=== PATIENT | female | born 1950 | race Caucasian/White ===

== ENCOUNTER 2017-08-22 22:18 | Emergency (ER) | payer OTHER ==
[~2017-08-22] VITALS: Ht 170.2 cm; Wt 77.5 kg
[2017-08-22] MEDS ORDERED: METF1000 PO (22:21)
[2017-08-22] MEDS ORDERED: LANTUS2P SQ (22:21)
[2017-08-22] MEDS ORDERED: VICT18IN SQ (22:24)
[2017-08-22] MEDS ORDERED: LISI10TA3 PO (22:24)
[2017-08-22] MEDS ORDERED: SYNT112T PO (22:24)
[2017-08-22] MEDS ORDERED: VITA1000 PO (22:24)
[2017-08-22 22:27] VITALS: BP 109/57; PULSE 63; RESP 14; TEMP 97.7; O2SAT 95
[2017-08-22] MEDS ORDERED: ASPI-516 CHEW (22:27)
[2017-08-22] MEDS ORDERED: ROSU10 PO (22:27)
[2017-08-22 22:56] LABS: AUTOMATED NEUTROPHIL # 3.5 TH/MM3 (1.8-7.7); BASOPHIL % 0.7 % (0.0-2.0); EOSINOPHIL # 0.3 TH/MM3 (0-0.4); EOSINOPHIL % 4.5 % (0.0-4.0); HEMATOCRIT 38.9 % (35.0-46.0); HEMOGLOBIN 12.7 GM/DL (11.6-15.3); LYMPH % 31.3 % (9.0-44.0); LYMPHOCYTE # 1.9 TH/MM3 (1.0-4.8); MEAN CORPUSCULAR HGB CONC 32.6 % (32.0-36.0); MEAN PLATELET VOLUME 8.2 FL (7.0-11.0); MONO % 6.2 % (0.0-8.0); MONOCYTE # 0.4 TH/MM3 (0-0.9); NEUT % 57.3 % (16.0-70.0); PLATELET COUNT 194 TH/MM3 (150-450); RED BLOOD COUNT 4.37 MIL/MM3 (4.00-5.30); RED CELL DISTRIBUTION WIDTH 13.1 % (11.6-17.2); WHITE BLOOD COUNT 6.1 TH/MM3 (4.0-11.0)
[2017-08-22 23:03] LABS: CHLORIDE 106 MEQ/L (98-107); SODIUM (NA) 138 MEQ/L (136-145)
[2017-08-22 23:06] LABS: ALBUMIN 3.6 GM/DL (3.4-5.0); BICARBONATE 22.5 MEQ/L (21.0-32.0); CALCIUM 8.8 MG/DL (8.5-10.1); GLUCOSE,RANDOM 260 MG/DL (74-106)
[2017-08-22 23:07] LABS: BLOOD UREA NITROGEN 17 MG/DL (7-18)
[2017-08-22 23:09] LABS: ALT (GPT) 25 U/L (10-53); AST (GOT) 16 U/L (15-37)
[2017-08-22 23:10] LABS: CREATININE 0.68 MG/DL (0.50-1.00); GLOMERULAR FILTRATION RATE 86 ML/MIN (>89)
[2017-08-22 23:11] LABS: TOTAL BILIRUBIN ADULT 0.3 MG/DL (0.2-1.0); TOTAL PROTEIN 6.7 GM/DL (6.4-8.2)
[2017-08-22 23:12] LABS: ALKALINE PHOSPHATASE 75 U/L (45-117)
[2017-08-22] MEDS ORDERED: SODIUM CHLOR 0.9% 1000 ML INJ 1,000 ML IV SCH (23:12)
[2017-08-22] MEDS ORDERED: ONDANSETRON HCL 4 MG/2 ML VIAL IVP ONE (23:15)
[2017-08-22] MEDS ORDERED: SODIUM CHLORIDE 0.9% FLUSH 10 ML FLUSH IV FLUSH PRN (23:15)
--- NOTE | 2017-08-22 23:15 | PD ---
HPI Chief Complaint: Alcohol/Drug Intoxication Time Seen by Provider: 23:08 Travel History International Travel<30 days: No Contact w/Intl Traveler<30days: No Traveled to known affect area: No History of Present Illness HPI The patient is a 67-year-old female that is not an alcoholic according to her daughter and happened to be out drinking vodka today. She started vomiting and felt weak and her daughter called the ambulance. She denies any abdominal pain and has not been vomiting blood. She has not had any fever. PFSH Past Medical History High Cholesterol: Yes Diabetes: Yes Patient Takes Glucophage: Yes Diminished Hearing: No Hypertension: Yes Tetanus Vaccination: Unknown Influenza Vaccination: No Menopausal: Yes Past Surgical History Appendectomy: Yes Hysterectomy: Yes Tonsillectomy: Yes Social History Alcohol Use: Yes (occ) Tobacco Use: Yes (3-4 qd) Substance Use: No Allergies-Medications (Allergen,Severity, Reaction): Coded Allergies: codeine (Verified Allergy, Unknown, 08/22/17) Reported Meds & Prescriptions Reported Meds & Active Scripts Active Reported Aspirin 81 Mg Chew 81 Mg CHEW DAILY Crestor (Rosuvastatin Calcium) 10 Mg Tab 10 Mg PO DAILY Lisinopril 10 Mg Tab 10 Mg PO DAILY Vitamin D-1000 (Cholecalciferol) 1,000 Unit Tab 1,000 Units PO WEEKLY Synthroid (Levothyroxine Sodium) 112 Mcg Tab 112 Mcg PO DAILY Victoza Inj (Liraglutide Inj) 18 Mg/3 Ml Pen 1.8 Mg SQ DAILY Lantus Inj (Insulin Glargine) 1,000 Unit/10 Ml Vial 34 Units SQ HS Metformin (Metformin HCl) 1,000 Mg Tab 1,000 Mg PO BIDPC Review of Systems Except as stated in HPI: all other systems reviewed are Neg Physical Exam Narrative GENERAL: The patient is alert, cooperative, oriented 3 in no apparent distress at this time. Her vital signs are normal. She appears slightly dehydrated. SKIN: Focused skin assessment warm/dry. HEAD: Atraumatic. Normocephalic. EYES: Pupils equal and round. No scleral icterus. No injection or drainage. ENT: No nasal bleeding or discharge. Mucous membranes pink and moist. NECK: Trachea midline. No JVD. CARDIOVASCULAR: Regular rate and rhythm. No murmur appreciated. RESPIRATORY: No accessory muscle use. Clear to auscultation. Breath sounds equal bilaterally. GASTROINTESTINAL: Abdomen soft, non-tender, nondistended. Hepatic and splenic margins not palpable. No guarding or rebound is present. MUSCULOSKELETAL: No obvious deformities. No clubbing. No cyanosis. No edema. NEUROLOGICAL: Awake and alert. No obvious cranial nerve deficits. Motor grossly within normal limits. Normal speech. PSYCHIATRIC: Appropriate mood and affect; insight and judgment normal. Data Data Last Documented VS Vital Signs Date Time Temp Pulse Resp B/P (MAP) Pulse Ox O2 Delivery O2 Flow Rate FiO2 08/22/17 23:25 55 15 105/56 (72) 99 Room Air 08/22/17 22:27 97.7 Orders Orders Complete Blood Count With Diff (08/22/17 22:38) Blood Glucose (08/22/17 22:38) Comprehensive Metabolic Panel (08/22/17 22:38) Iv Access Insert/Monitor (08/22/17 22:38) Alcohol (Ethanol) (08/22/17 22:38) Ecg Monitoring (08/22/17 23:12) Oximetry (08/22/17 23:12) Ondansetron Inj (Zofran Inj) (08/22/17 23:15) Sodium Chlor 0.9% 1000 Ml Inj (Ns 1000 M (08/22/17 23:12) Sodium Chloride 0.9% Flush (Ns Flush) (08/22/17 23:15) Lipase (08/22/17 22:50) Labs Laboratory Tests Test 08/22/17 22:50 White Blood Count 6.1 TH/MM3 Red Blood Count 4.37 MIL/MM3 Hemoglobin 12.7 GM/DL Hematocrit 38.9 % Mean Corpuscular Volume 89.0 FL Mean Corpuscular Hemoglobin 29.0 PG Mean Corpuscular Hemoglobin Concent 32.6 % Red Cell Distribution Width 13.1 % Platelet Count 194 TH/MM3 Mean Platelet Volume 8.2 FL Neutrophils (%) (Auto) 57.3 % Lymphocytes (%) (Auto) 31.3 % Monocytes (%) (Auto) 6.2 % Eosinophils (%) (Auto) 4.5 % Basophils (%) (Auto) 0.7 % Neutrophils # (Auto) 3.5 TH/MM3 Lymphocytes # (Auto) 1.9 TH/MM3 Monocytes # (Auto) 0.4 TH/MM3 Eosinophils # (Auto) 0.3 TH/MM3 Basophils # (Auto) 0.0 TH/MM3 CBC Comment DIFF FINAL Differential Comment Blood Urea Nitrogen 17 MG/DL Creatinine 0.68 MG/DL Random Glucose 260 MG/DL Total Protein 6.7 GM/DL Albumin 3.6 GM/DL Calcium Level 8.8 MG/DL Alkaline Phosphatase 75 U/L Aspartate Amino Transf (AST/SGOT) 16 U/L Alanine Aminotransferase (ALT/SGPT) 25 U/L Total Bilirubin 0.3 MG/DL Sodium Level 138 MEQ/L Potassium Level 3.6 MEQ/L Chloride Level 106 MEQ/L Carbon Dioxide Level 22.5 MEQ/L Anion Gap 10 MEQ/L Estimat Glomerular Filtration Rate 86 ML/MIN Lipase 287 U/L Ethyl Alcohol Level 185 MG/DL [facility] Medical Decision Making Medical Screen Exam Complete: Yes Emergency Medical Condition: Yes Medical Record Reviewed: Yes Interpretation(s) The CBC is normal. The complete metabolic profile shows a GFR of 86, glucose 260 but is otherwise unremarkable. The alcohol level is 185. The lipase is 287 , this is normal. Differential Diagnosis Gastritis, alcohol intoxication, viral gastroenteritis, electrolyte disorder, dehydration Narrative Course It is now 0020 in the morning. The patient feels much better and wants to go home. She has no nausea and no abdominal pain. Impression: Mild alcohol gastritis. The patient is not used to drinking alcohol. She should not drink so much alcohol in the future at one sitting. She has not a binge drinker according to her daughter. Diagnosis Primary Impression: Alcoholic gastritis Additional Impression: Alcohol intoxication Additional Instructions: As we discussed, reduce your amount of alcohol at one sitting. If you get abdominal pain you can use some [id number] Prilosec and liquid Maalox/ Mylanta. Disposition: 01 DISCHARGE HOME Condition: Stable Odell Avelar MD Aug 22, 2017 23:15
[2017-08-22 23:22] VITALS: BP 105/56; PULSE 55; RESP 15; O2SAT 98
[2017-08-22 23:25] VITALS: BP 105/56; PULSE 55; RESP 15; O2SAT 99
[2017-08-22 23:27] LABS: LIPASE 287 U/L (73-393)
[2017-08-23 00:25] VITALS: BP 110/60
== END 2017-08-23 00:32 | disposition home or self-care (01) ==
LOC: PHED 22:18
DX: K29.20 Alcoholic gastritis without bleeding (principal); F10.129 Alcohol abuse with intoxication, unspecified; E11.9 Type 2 diabetes mellitus without complications; E78.00 Pure hypercholesterolemia, unspecified; I10 Essential (primary) hypertension; F17.200 Nicotine dependence, unspecified, uncomplicated
CPT/HCPCS: 80053; 80307; 83690; 85025; 96361; 96374; 99284; J2405; J7030